=== PATIENT | female | born 1955 | race Caucasian/White ===

== ENCOUNTER 2018-02-20 17:35 | Emergency (ER) | payer MEDICARE, MEDICAID ==
[~2018-02-20] VITALS: Ht 175.3 cm; Wt 127.2 kg
[~2018-02-20 17:35] MED LIST: ASPI81TA52 PO; BUDE10.22 INH; BUSP10TA11 PO; DILT180C56 PO; DULO-31 PO; FURO-150 PO; LAMO100T65 PO; LISI40TA4 PO; MONT4TAB11 PO; OMEP40CA37 PO; PROP40TA72 PO; QUET25TA PO; ROPI1TAB2 PO; SYN0.088T PO; TRAZ-219 PO
[2018-02-20] MEDS ORDERED: ondansetron/PF 4mg/2ml inj IV ONE (17:45)
[2018-02-20 18:04] LABS: BASOPHILS # (AUTO) 0.1 X10'3 (0-0.2); BASOPHILS % (AUTO) 0.6 % (0-1); EOSINOPHILS # (AUTO) 0.3 X10'3 (0-0.9); EOSINOPHILS % (AUTO) 2.5 % (0-6); HEMATOCRIT 37.4 % (35.0-45.0); HEMOGLOBIN 12.4 g/dl (12.0-16.0); LYMPHOCYTES # (AUTO) 1.3 X10'3 (1.1-4.8); LYMPHOCYTES % (AUTO) 10.6 % (21-51); MEAN CORPUSCULAR HEMOGLOBIN 27.6 PG (27.0-31.0); MEAN CORPUSCULAR HGB CONC 33.2 % (33.0-36.5); MEAN CORPUSCULAR VOLUME 82.9 FL (78-98); MONOCYTES # (AUTO) 0.6 X10'3 (0-0.9); MONOCYTES % (AUTO) 4.7 % (2-12); NEUTROPHILS # (AUTO) 10.1 X10'3 (1.8-7.7); NEUTROPHILS % (AUTO) 81.6 % (42-75); PLATELET COUNT 373 X10'3 (140-440); RED CELL DISTRIBUTION WIDTH 15.4 % (11.5-14.5); WHITE BLOOD COUNT 12.3 X10'3 (4.5-11.0)
[2018-02-20 18:21] LABS: ALANINE AMINOTRANSFERASE 23 U/L (12-78); ALBUMIN 3.6 G/DL (3.4-5.0); ALBUMIN/GLOBULIN RATIO 0.8 (1.1-1.5); ALKALINE PHOSPHATASE 145 IU/L (46-116); ANION GAP 13 (8-16); ASPARTATE AMINO TRANSFERASE 13 U/L (10-37); BILIRUBIN,TOTAL 0.5 MG/DL (0.1-1.0); BLOOD UREA NITROGEN 17 MG/DL (7-18); BUN/CREATININE RATIO 17.3 (6.6-38.0); CALCIUM 8.9 MG/DL (8.5-10.1); CHLORIDE 101 MMOL/L (99-107); CREATININE 0.98 MG/DL (0.40-0.90); GLUCOSE 145 MG/DL (70-104); POTASSIUM 3.7 MMOL/L (3.5-5.1); SODIUM 138 MMOL/L (135-145); TOTAL CARBON DIOXIDE 23.7 MMOL/L (24-32); TOTAL PROTEIN 8.1 G/DL (6.4-8.2); eGFR 58 ML/MIN
[2018-02-20 18:28] LABS: PROTHROMBIN TIME 10.1 SECONDS (9.0-12.0)
[2018-02-20 18:29] LABS: LIPASE 127 U/L (73-393); MAGNESIUM 1.9 MG/DL (1.5-2.4); PARTIAL THROMBOPLASTIN TIME 26 SECONDS (22-32)
[2018-02-20] MEDS ORDERED: amLODIPine 5mg tablet PO ONE (19:00)
[2018-02-20 19:09] LABS: ETHANOL < 0.010 GM/DL (0.0-0.010)
[2018-02-20 20:21] LABS: CLARITY,URINE CLEAR (Clear); COLOR,URINE YELLOW (Yellow); GLUCOSE, URINE NEGATIVE (Neg); KETONES,URINE TRACE mg/dl (Neg); LEUKOCYTE ESTERASE ,URINE NEGATIVE (Neg); NITRITES, URINE NEGATIVE (Neg); OCCULT BLOOD,URINE SMALL (Neg); PH,URINE 7.5 (4.8-8.0); PROTEIN,URINE TRACE mg/dl (Neg); UA COLLECTION TYPE FOLEY CATH; UROBILINOGEN,URINE 0.2 E.U/dL (0.2-1.0)
[2018-02-20 20:23] LABS: URINE HCG NEGATIVE (NEG)
[2018-02-20 20:39] LABS: BACTERIA,URINE NONE SEEN /HPF (Neg); MUCUS STRANDS NONE SEEN /LPF (Neg); SQUAMOUS EPITHELIAL CELL,UR FEW /LPF (FEW); WBC,URINE NONE SEEN /HPF (0-4)
[2018-02-20 20:40] LABS: URINE AMPHETAMINE SCREEN NEGATIVE (Neg); URINE BARBITUATE SCREEN NEGATIVE (Neg); URINE BENZODIAZEPINES SCREEN NEGATIVE (Neg); URINE CANNABINOID SCREEN POSITIVE (Neg); URINE COCAINE SCREEN NEGATIVE (Neg); URINE METHADONE SCREEN NEGATIVE (Neg); URINE OPIATE SCREEN NEGATIVE (Neg); URINE PHENCYCLIDINE SCREEN NEGATIVE (Neg)
[2018-02-20] MEDS ORDERED: POLY17PO10 PO (21:20)
[2018-02-20] MEDS ORDERED: ONDA4TAB6 PO (21:20)
[2018-02-20 21:49] VITALS: BP 187/102
== END 2018-02-20 21:51 | disposition home or self-care (01) ==
LOC: ER 17:35
DX: R11.2 Nausea with vomiting, unspecified (principal); K59.00 Constipation, unspecified; R06.02 Shortness of breath; I10 Essential (primary) hypertension; R10.84 Generalized abdominal pain; Z90.49 Acquired absence of other specified parts of digestive tract; Z98.890 Other specified postprocedural states; Z88.5 Allergy status to narcotic agent; Z88.2 Allergy status to sulfonamides; Z91.048 Other nonmedicinal substance allergy status; Z79.899 Other long term (current) drug therapy; Z79.82 Long term (current) use of aspirin
CPT/HCPCS: 36415; 71045; 74176; 80053; 80305; 80320; 81001; 81025; 83690; 83735; 83880; 84484; 85025; 85610; 85730; 87502; 87503; 93005; 96374; 99284; J2405

== ENCOUNTER 2018-03-13 17:44 | Emergency (ER) | payer MEDICARE, MEDICAID ==
[~2018-03-13] VITALS: Ht 175.3 cm; Wt 121.8 kg
[~2018-03-13 17:44] MED LIST changes: +ONDA4TAB6 PO
[2018-03-13 18:39] LABS: BASOPHILS % (AUTO) 0.4 % (0-1); EOSINOPHILS # (AUTO) 0.3 X10'3 (0-0.9); EOSINOPHILS % (AUTO) 3.1 % (0-6); HEMATOCRIT 38.5 % (35.0-45.0); HEMOGLOBIN 12.3 g/dl (12.0-16.0); LYMPHOCYTES # (AUTO) 1.4 X10'3 (1.1-4.8); LYMPHOCYTES % (AUTO) 16.6 % (21-51); MEAN CORPUSCULAR VOLUME 84.6 FL (78-98); MEAN PLATELET VOLUME 7.7 FL (7.4-10.4); MONOCYTES # (AUTO) 0.6 X10'3 (0-0.9); MONOCYTES % (AUTO) 6.7 % (2-12); NEUTROPHILS # (AUTO) 6.3 X10'3 (1.8-7.7); NEUTROPHILS % (AUTO) 73.2 % (42-75); PLATELET COUNT 368 X10'3 (140-440); RED BLOOD COUNT 4.55 X10'6 (4.20-5.60); RED CELL DISTRIBUTION WIDTH 15.1 % (11.5-14.5); WHITE BLOOD COUNT 8.6 X10'3 (4.5-11.0)
--- NOTE | 2018-03-13 18:42 | NUR ---
ASSISTING RN WITH PT CARE, PT IS 62 YO FEMALE C/O CHEST PAIN "SHARP...LIKE A CRAMP... HEAVINESS" RADIATES THROUGH TO LEFT SCAPULA, +SOB, NO N/V, NO DIAPHORESIS, +LIGHTHEADEDNESS, PT HAS APPT WITH DR TIMMONS IN APR (HAD STENT PLACED IN SEPTEMBER), HAS APPT WITH PMD ON TO FOLLOW UP NODULES IN RRL LUNG FOUND IN JANUARY, PT IS [employer] 15, ALERT AND ORIENTED, FRIEND AT BEDSIDE, WAITING TO BE EVALUATED BY PROVIDER
[2018-03-13 18:49] LABS: ALANINE AMINOTRANSFERASE 23 U/L (12-78); ALBUMIN 3.4 G/DL (3.4-5.0); ALBUMIN/GLOBULIN RATIO 0.8 (1.1-1.5); ALKALINE PHOSPHATASE 150 IU/L (46-116); ANION GAP 12 (8-16); ASPARTATE AMINO TRANSFERASE 14 U/L (10-37); BILIRUBIN,TOTAL 0.4 MG/DL (0.1-1.0); BLOOD UREA NITROGEN 14 MG/DL (7-18); BUN/CREATININE RATIO 13.2 (6.6-38.0); CALCIUM 8.7 MG/DL (8.5-10.1); CHLORIDE 101 MMOL/L (99-107); CREATININE 1.06 MG/DL (0.40-0.90); GLUCOSE 108 MG/DL (70-104); POTASSIUM 3.9 MMOL/L (3.5-5.1); SODIUM 139 MMOL/L (135-145); TOTAL CARBON DIOXIDE 26.1 MMOL/L (24-32); TOTAL PROTEIN 7.7 G/DL (6.4-8.2); eGFR 53 ML/MIN
[2018-03-13 19:14] LABS: PARTIAL THROMBOPLASTIN TIME 27 SECONDS (22-32)
[2018-03-13] MEDS ORDERED: aspirin 81mg tab.chew PO ONE (19:15)
[2018-03-13] MEDS ORDERED: albuterol 2.5 MG/3 ML nebule NEB ONE (19:35)
[2018-03-13] MEDS ORDERED: ALBU6.7H INH (19:51)
[2018-03-13] MEDS ORDERED: PRED20TA PO (19:51)
[2018-03-13] MEDS ORDERED: dexamethasone 4mg tablet PO ONE (19:55)
[2018-03-13 20:05] VITALS: BP 146/90
== END 2018-03-13 20:09 | disposition home or self-care (01) ==
LOC: ER 17:44
DX: J20.9 Acute bronchitis, unspecified (principal); R07.89 Other chest pain; I10 Essential (primary) hypertension; Z90.49 Acquired absence of other specified parts of digestive tract; Z88.5 Allergy status to narcotic agent; Z88.2 Allergy status to sulfonamides; Z88.8 Allergy status to other drugs, medicaments and biological substances; Z79.82 Long term (current) use of aspirin; Z79.899 Other long term (current) drug therapy
CPT/HCPCS: 36415; 71045; 80053; 83735; 83880; 84484; 85025; 85610; 85730; 93005; 94640; 94760; 99284; J8540

== ENCOUNTER 2020-05-16 09:57 | Outpatient (CLI) | payer MEDICARE, MEDICAID ==
[~2020-05-16 09:57] MED LIST changes: +ALBU6.7H9 INH; +LISI40TA13 PO; -LISI40TA4 PO; -MONT4TAB11 PO; +MONT4TAB18 PO; +OMEP40CA13 PO; -OMEP40CA37 PO; -TRAZ-219 PO; +TRAZ-256 PO
== END 2020-05-16 23:59 | disposition home or self-care (01) ==
LOC: RT 09:57
PROVIDERS: ATTEND Family Medicine
DX: R94.2 Abnormal results of pulmonary function studies (principal); R06.02 Shortness of breath
CPT/HCPCS: 94010; 94729

== ENCOUNTER 2023-07-09 12:12 | Emergency (ER) | payer MEDICARE, MEDICAID ==
[~2023-07-09] VITALS: Ht 175.3 cm; Wt 144.6 kg
[~2023-07-09 12:12] MED LIST changes: -ALBU6.7H9 INH; +ATOR40TA72 PO; -BUDE10.22 INH; -BUSP10TA11 PO; -DILT180C56 PO; -FURO-150 PO; +FURO40TA4 PO; -LAMO100T65 PO; +METF-1203 PO; +MONT-40 PO; -MONT4TAB18 PO; +OMEP20CA16 PO; -OMEP40CA13 PO; -ONDA4TAB6 PO; +POTA-218 PO; -QUET25TA PO; -ROPI1TAB2 PO; +ROPI2TAB53 PO
[2023-07-09] MEDS ORDERED: DULO60CA65 PO (12:30)
[2023-07-09] MEDS ORDERED: QUET25TA36 PO (12:30)
[2023-07-09] MEDS ORDERED: LAMO200T10 PO (12:30)
[2023-07-09] MEDS ORDERED: APIX5TAB3 PO (12:30)
[2023-07-09] MEDS ORDERED: SOTA80TA PO (12:30)
[2023-07-09 13:32] LABS: BASOPHILS # (AUTO) 0.1 X10'3 (0-0.2); BASOPHILS % (AUTO) 0.6 % (0-1); EOSINOPHILS # (AUTO) 0.2 X10'3 (0-0.9); EOSINOPHILS % (AUTO) 1.8 % (0-6); HEMATOCRIT 35.8 % (35.0-45.0); HEMOGLOBIN 11.6 g/dl (12.0-16.0); LYMPHOCYTES # (AUTO) 1.7 X10'3 (1.1-4.8); LYMPHOCYTES % (AUTO) 14.6 % (21-51); MEAN CORPUSCULAR HEMOGLOBIN 29.2 PG (27.0-31.0); MEAN CORPUSCULAR HGB CONC 32.2 g/dL (33.0-36.5); MEAN CORPUSCULAR VOLUME 90.5 FL (78-98); MEAN PLATELET VOLUME 7.3 FL (7.4-10.4); MONOCYTES # (AUTO) 0.6 X10'3 (0-0.9); MONOCYTES % (AUTO) 4.8 % (2-12); NEUTROPHILS # (AUTO) 9.2 X10'3 (1.8-7.7); NEUTROPHILS % (AUTO) 78.2 % (42-75); PLATELET COUNT 319 X10'3 (140-440); RED BLOOD COUNT 3.96 X10'6 (4.20-5.60); RED CELL DISTRIBUTION WIDTH 14.1 % (11.5-14.5); WHITE BLOOD COUNT 11.7 X10'3 (4.5-11.0)
[2023-07-09 13:47] LABS: ALANINE AMINOTRANSFERASE 21 U/L (12-78); ALBUMIN 3.3 G/DL (3.4-5.0); ALBUMIN/GLOBULIN RATIO 0.8 (1.1-1.5); ALKALINE PHOSPHATASE 113 IU/L (46-116); ANION GAP 8 (8-16); ASPARTATE AMINO TRANSFERASE 8 U/L (10-37); BILIRUBIN,TOTAL 0.5 MG/DL (0.1-1.0); BLOOD UREA NITROGEN 14 MG/DL (7-18); CALCIUM 9.4 MG/DL (8.5-10.1); CHLORIDE 102 MMOL/L (99-107); CREATININE 1.17 MG/DL (0.40-0.90); GLUCOSE 138 MG/DL (70-104); LIPASE 35 U/L (16-77); POTASSIUM 4.4 MMOL/L (3.5-5.1); SODIUM 138 MMOL/L (135-145); TOTAL CARBON DIOXIDE 27.7 MMOL/L (24-32); TOTAL PROTEIN 7.6 G/DL (6.4-8.2); eCRCL 49 ML/MIN; eGFR 46 ML/MIN
[2023-07-09] MEDS: normal saline 1000ml 1,000 ML IV ONE (16:20)
[2023-07-09] MEDS ORDERED: iohexol 300mg/ml 100ml inj. ONE (16:26)
[2023-07-09 17:52] VITALS: BP 179/79; PULSE 78; RESP 18; TEMP 98.7; O2SAT 97
== END 2023-07-09 18:00 | disposition home or self-care (01) ==
LOC: ER 12:12
DX: N93.9 Abnormal uterine and vaginal bleeding, unspecified (principal); I10 Essential (primary) hypertension; F31.9 Bipolar disorder, unspecified; Z88.5 Allergy status to narcotic agent; Z88.2 Allergy status to sulfonamides; Z79.899 Other long term (current) drug therapy; Z79.2 Long term (current) use of antibiotics; Z90.49 Acquired absence of other specified parts of digestive tract
CPT/HCPCS: 36415; 74177; 76830; 76856; 80053; 83690; 85025; 96360; 99285; J3490; J7030; Q9967

== ENCOUNTER 2023-07-17 12:08 | Emergency (ER) | payer MEDICARE, MEDICAID ==
[~2023-07-17] VITALS: Ht 175.3 cm; Wt 148.6 kg
[~2023-07-17 12:08] MED LIST changes: +APIX5TAB3 PO; -ASPI81TA52 PO; -DULO-31 PO; +DULO60CA65 PO; +LAMO200T10 PO; -METF-1203 PO; -PROP40TA72 PO; +QUET25TA36 PO; +SOTA80TA PO
[2023-07-17 14:51] LABS: BASOPHILS # (AUTO) 0.1 X10'3 (0-0.2); BASOPHILS % (AUTO) 0.8 % (0-1); EOSINOPHILS # (AUTO) 0.2 X10'3 (0-0.9); EOSINOPHILS % (AUTO) 2.4 % (0-6); HEMATOCRIT 23.1 % (35.0-45.0); HEMOGLOBIN 7.5 g/dl (12.0-16.0); LYMPHOCYTES # (AUTO) 1.5 X10'3 (1.1-4.8); LYMPHOCYTES % (AUTO) 14.3 % (21-51); MEAN CORPUSCULAR HEMOGLOBIN 29.8 PG (27.0-31.0); MEAN CORPUSCULAR HGB CONC 32.3 g/dL (33.0-36.5); MEAN CORPUSCULAR VOLUME 92.3 FL (78-98); MEAN PLATELET VOLUME 7.2 FL (7.4-10.4); MONOCYTES # (AUTO) 0.6 X10'3 (0-0.9); MONOCYTES % (AUTO) 5.3 % (2-12); NEUTROPHILS # (AUTO) 8.2 X10'3 (1.8-7.7); NEUTROPHILS % (AUTO) 77.2 % (42-75); PLATELET COUNT 307 X10'3 (140-440); RED CELL DISTRIBUTION WIDTH 15.7 % (11.5-14.5); WHITE BLOOD COUNT 10.6 X10'3 (4.5-11.0)
[2023-07-17 15:07] LABS: APTT 24 SECONDS (22-32); PROTHROMBIN TIME 11.1 SECONDS (9.0-12.0)
[2023-07-17 15:09] LABS: ALANINE AMINOTRANSFERASE 18 U/L (12-78); ALBUMIN 3.1 G/DL (3.4-5.0); ALBUMIN/GLOBULIN RATIO 0.9 (1.1-1.5); ALKALINE PHOSPHATASE 97 IU/L (46-116); ANION GAP 3 (8-16); ASPARTATE AMINO TRANSFERASE 20 U/L (10-37); BILIRUBIN,TOTAL 0.5 MG/DL (0.1-1.0); BLOOD UREA NITROGEN 10 MG/DL (7-18); CALCIUM 8.5 MG/DL (8.5-10.1); CHLORIDE 103 MMOL/L (99-107); CREATININE 1.11 MG/DL (0.40-0.90); GLUCOSE 109 MG/DL (70-104); POTASSIUM 4.4 MMOL/L (3.5-5.1); SODIUM 137 MMOL/L (135-145); TOTAL CARBON DIOXIDE 30.7 MMOL/L (24-32); TOTAL PROTEIN 6.7 G/DL (6.4-8.2); eCRCL 51 ML/MIN; eGFR 49 ML/MIN
[2023-07-17 23:29] LABS: HEMATOCRIT 23.8 % (35.0-45.0); HEMOGLOBIN 7.6 g/dl (12.0-16.0); MEAN CORPUSCULAR HEMOGLOBIN 29.1 PG (27.0-31.0); MEAN CORPUSCULAR HGB CONC 31.8 g/dL (33.0-36.5); MEAN CORPUSCULAR VOLUME 91.5 FL (78-98); MEAN PLATELET VOLUME 7.2 FL (7.4-10.4); PLATELET COUNT 357 X10'3 (140-440); RED BLOOD COUNT 2.59 X10'6 (4.20-5.60); RED CELL DISTRIBUTION WIDTH 15.4 % (11.5-14.5); WHITE BLOOD COUNT 12.4 X10'3 (4.5-11.0)
[2023-07-18 00:31] LABS: PLATELET ESTIMATE NORMAL; TOTAL CELLS COUNTED 100
[2023-07-18 00:36] LABS: ELLIPTOCYTES FEW; HYPERSEGMENTED NEUTROPHILS FEW; HYPOCHROMASIA 1+; POIKILOCYTOSIS 3+; POLYCHROMASIA FEW
[2023-07-18 00:37] LABS: LARGE PLATELETS FEW
[2023-07-18] MEDS ORDERED: ALBU90AE INH (10:28)
[2023-07-18] MEDS ORDERED: SEMA0.258 SQ (10:28)
[2023-07-18] MEDS ORDERED: albuterol 2.5 MG/3 ML nebule NEB PRN (11:00)
[2023-07-18 12:14] LABS: BASOPHILS # (AUTO) 0.1 X10'3 (0-0.2); BASOPHILS % (AUTO) 0.8 % (0-1); EOSINOPHILS # (AUTO) 0.3 X10'3 (0-0.9); EOSINOPHILS % (AUTO) 2.4 % (0-6); HEMATOCRIT 23.4 % (35.0-45.0); HEMOGLOBIN 7.5 g/dl (12.0-16.0); LYMPHOCYTES # (AUTO) 1.8 X10'3 (1.1-4.8); LYMPHOCYTES % (AUTO) 16.4 % (21-51); MEAN CORPUSCULAR HEMOGLOBIN 29.5 PG (27.0-31.0); MEAN CORPUSCULAR VOLUME 92.1 FL (78-98); MONOCYTES # (AUTO) 0.6 X10'3 (0-0.9); MONOCYTES % (AUTO) 5.3 % (2-12); NEUTROPHILS # (AUTO) 8.4 X10'3 (1.8-7.7); NEUTROPHILS % (AUTO) 75.1 % (42-75); PLATELET COUNT 351 X10'3 (140-440); RED BLOOD COUNT 2.54 X10'6 (4.20-5.60); RED CELL DISTRIBUTION WIDTH 15.6 % (11.5-14.5); WHITE BLOOD COUNT 11.2 X10'3 (4.5-11.0)
[2023-07-18 13:04] VITALS: BP 167/85; PULSE 80; RESP 17; TEMP 98.2
[2023-07-18 13:15] LABS: UA COLLECTION TYPE CLN CATCH MIDSTREAM
[2023-07-18 13:16] LABS: CLARITY,URINE BLOODY (Clear); COLOR,URINE RED (Yellow)
[2023-07-18 13:23] LABS: BACTERIA,URINE FEW /HPF (Neg); MUCUS STRANDS MODERATE /LPF (Neg); RBC,URINE TNTC /HPF (0-2); SQUAMOUS EPITHELIAL CELL,UR MANY /LPF (FEW); WBC,URINE 0-4 /HPF (0-4)
[2023-07-18 13:27] VITALS: BP 178/96; PULSE 80; RESP 16; TEMP 98.6
[2023-07-18] MEDS: ROPINIRole 1mg tablet PO SCH (14:13)
[2023-07-18 14:15] VITALS: BP 166/120; PULSE 89; RESP 17; TEMP 98.4
[2023-07-18 14:53] VITALS: BP 164/110; PULSE 89; RESP 16; TEMP 98.6
[2023-07-18 15:38] VITALS: BP 195/109; PULSE 79; RESP 18; O2SAT 98
[2023-07-18] MEDS ORDERED: sotalol 80mg tablet PO SCH (20:00)
[2023-07-18] MEDS ORDERED: QUEtiapine 25mg tablet PO SCH (21:00)
[2023-07-18] MEDS ORDERED: traZODone 50mg tablet PO SCH (21:00)
[2023-07-18] MEDS ORDERED: montelukast 10mg tablet PO SCH (21:00)
[2023-07-19] MEDS ORDERED: levoTHYROXINE 88mcg tablet PO SCH (07:00)
[2023-07-19] MEDS ORDERED: lamoTRIgine 100mg tablet PO SCH (08:00)
[2023-07-19] MEDS ORDERED: atorvastatin 20mg tablet PO SCH (08:00)
[2023-07-19] MEDS ORDERED: furosemide 40mg tablet PO SCH (08:00)
[2023-07-19] MEDS ORDERED: pantoprazole 40mg Tablet.DR PO SCH (08:00)
[2023-07-19] MEDS ORDERED: lisinopril 20mg tablet PO SCH (08:00)
[2023-07-19] MEDS ORDERED: potassium chloride 10mEq ER tablet PO SCH (08:00)
[2023-07-19] MEDS ORDERED: duloxetine 30mg CAPSULE.DR PO SCH (08:00)
== END 2023-07-18 15:42 | disposition home or self-care (01) ==
LOC: ER 12:09
DX: N93.9 Abnormal uterine and vaginal bleeding, unspecified (principal); I95.1 Orthostatic hypotension; D50.0 Iron deficiency anemia secondary to blood loss (chronic); I11.0 Hypertensive heart disease with heart failure; I50.9 Heart failure, unspecified; E78.00 Pure hypercholesterolemia, unspecified; E03.9 Hypothyroidism, unspecified; Z88.5 Allergy status to narcotic agent; Z88.2 Allergy status to sulfonamides; Z91.09 Other allergy status, other than to drugs and biological substances; Z79.899 Other long term (current) drug therapy; Z90.49 Acquired absence of other specified parts of digestive tract
CPT/HCPCS: 36415; 36430; 71045; 80053; 81001; 85007; 85025; 85027; 85610; 85730; 86885; 86900; 86901; 86920; 93005; 99285; J7040; P9016

== ENCOUNTER 2023-07-19 12:25 | Emergency (ER) | payer MEDICARE, MEDICAID ==
[~2023-07-19] VITALS: Ht 175.3 cm; Wt 142.0 kg
[~2023-07-19 12:25] MED LIST changes: +ALBU90AE INH; +SEMA0.258 SQ
[2023-07-19 13:21] LABS: ALANINE AMINOTRANSFERASE 20 U/L (12-78); ALBUMIN/GLOBULIN RATIO 0.8 (1.1-1.5); ALKALINE PHOSPHATASE 95 IU/L (46-116); ANION GAP 7 (8-16); ASPARTATE AMINO TRANSFERASE 11 U/L (10-37); BILIRUBIN,TOTAL 0.6 MG/DL (0.1-1.0); BLOOD UREA NITROGEN 14 MG/DL (7-18); BUN/CREATININE RATIO 10.3 (10.0-20.0); CALCIUM 8.6 MG/DL (8.5-10.1); CHLORIDE 104 MMOL/L (99-107); CREATININE 1.36 MG/DL (0.40-0.90); GLUCOSE 117 MG/DL (70-104); POTASSIUM 4.2 MMOL/L (3.5-5.1); SODIUM 140 MMOL/L (135-145); TOTAL CARBON DIOXIDE 28.6 MMOL/L (24-32); TOTAL PROTEIN 6.6 G/DL (6.4-8.2); eCRCL 42 ML/MIN; eGFR 39 ML/MIN
[2023-07-19 13:22] LABS: BASOPHILS % (AUTO) 0.5 % (0-1); EOSINOPHILS # (AUTO) 0.2 X10'3 (0-0.9); EOSINOPHILS % (AUTO) 2.1 % (0-6); HEMATOCRIT 23.3 % (35.0-45.0); HEMOGLOBIN 7.5 g/dl (12.0-16.0); LYMPHOCYTES # (AUTO) 1.4 X10'3 (1.1-4.8); LYMPHOCYTES % (AUTO) 12.8 % (21-51); MEAN CORPUSCULAR HEMOGLOBIN 29.6 PG (27.0-31.0); MEAN CORPUSCULAR HGB CONC 32.3 g/dL (33.0-36.5); MEAN CORPUSCULAR VOLUME 91.7 FL (78-98); MONOCYTES # (AUTO) 0.6 X10'3 (0-0.9); NEUTROPHILS # (AUTO) 8.4 X10'3 (1.8-7.7); NEUTROPHILS % (AUTO) 78.6 % (42-75); PLATELET COUNT 320 X10'3 (140-440); RED BLOOD COUNT 2.55 X10'6 (4.20-5.60); RED CELL DISTRIBUTION WIDTH 15.9 % (11.5-14.5); WHITE BLOOD COUNT 10.7 X10'3 (4.5-11.0)
[2023-07-19 21:21] VITALS: BP 134/67; PULSE 74; RESP 18; TEMP 98.7
[2023-07-19 21:40] VITALS: BP 138/87; PULSE 74; RESP 18; TEMP 98.3
[2023-07-19 22:30] VITALS: BP 163/73; PULSE 77; RESP 14; TEMP 98.4
[2023-07-20 05:10] VITALS: BP 151/68; PULSE 73; RESP 16; TEMP 98.4; O2SAT 98
== END 2023-07-20 05:16 ==
LOC: ER 12:25
DX: D50.0 Iron deficiency anemia secondary to blood loss (chronic) (principal); N93.9 Abnormal uterine and vaginal bleeding, unspecified; R06.02 Shortness of breath; R53.1 Weakness; R42 Dizziness and giddiness; Z88.5 Allergy status to narcotic agent; Z88.2 Allergy status to sulfonamides; Z79.899 Other long term (current) drug therapy; I11.0 Hypertensive heart disease with heart failure; I50.9 Heart failure, unspecified; E78.00 Pure hypercholesterolemia, unspecified; E03.9 Hypothyroidism, unspecified; Z90.49 Acquired absence of other specified parts of digestive tract
CPT/HCPCS: 36415; 36430; 80053; 85025; 86885; 86900; 86901; 86920; 99285; J7040; P9016

== ENCOUNTER 2023-07-28 10:13 | Emergency (ER) | payer MEDICARE, MEDICAID ==
[~2023-07-28] VITALS: Ht 175.3 cm; Wt 145.4 kg
[2023-07-28 10:16] VITALS: TEMP 99
[2023-07-28 11:07] LABS: BASOPHILS % (AUTO) 0.6 % (0-1); EOSINOPHILS # (AUTO) 0.2 X10'3 (0-0.9); EOSINOPHILS % (AUTO) 3.2 % (0-6); HEMATOCRIT 29.5 % (35.0-45.0); HEMOGLOBIN 9.3 g/dl (12.0-16.0); LYMPHOCYTES # (AUTO) 0.6 X10'3 (1.1-4.8); LYMPHOCYTES % (AUTO) 10.7 % (21-51); MEAN CORPUSCULAR HEMOGLOBIN 28.8 PG (27.0-31.0); MEAN CORPUSCULAR HGB CONC 31.6 g/dL (33.0-36.5); MEAN CORPUSCULAR VOLUME 91.2 FL (78-98); MONOCYTES # (AUTO) 0.7 X10'3 (0-0.9); MONOCYTES % (AUTO) 13.6 % (2-12); NEUTROPHILS # (AUTO) 3.7 X10'3 (1.8-7.7); NEUTROPHILS % (AUTO) 71.9 % (42-75); PLATELET COUNT 205 X10'3 (140-440); RED BLOOD COUNT 3.23 X10'6 (4.20-5.60); RED CELL DISTRIBUTION WIDTH 17.5 % (11.5-14.5); WHITE BLOOD COUNT 5.2 X10'3 (4.5-11.0)
[2023-07-28 11:32] LABS: ALBUMIN 3.2 G/DL (3.4-5.0); ANION GAP 10 (8-16); BLOOD UREA NITROGEN 14 MG/DL (7-18); BUN/CREATININE RATIO 13.2 (10.0-20.0); CALCIUM 8.8 MG/DL (8.5-10.1); CHLORIDE 101 MMOL/L (99-107); CREATININE 1.06 MG/DL (0.40-0.90); GLUCOSE 143 MG/DL (70-104); POTASSIUM 4.4 MMOL/L (3.5-5.1); PRO BRAIN NATRIURETIC PEPTIDE 180 PG/ML (0-125); SODIUM 133 MMOL/L (135-145); TOTAL CARBON DIOXIDE 21.9 MMOL/L (24-32); eCRCL 54 ML/MIN; eGFR 52 ML/MIN
[2023-07-28] MEDS: predniSONE 20 mg tablet PO ONE (12:45)
[2023-07-28] MEDS: ipratropium 0.5 MG/2.5ML nebule IH ONE (12:46)
[2023-07-28] MEDS: albuterol 2.5 MG/3 ML nebule CONTNEB PRN ×2 (12:46→15:31)
[2023-07-28 12:51] VITALS: PULSE 86; RESP 22; O2SAT 97
[2023-07-28 13:29] VITALS: PULSE 80; RESP 22; O2SAT 96
[2023-07-28] MEDS: normal saline 1000ML IV soln IVB ONE (14:45)
[2023-07-28 15:31] VITALS: PULSE 81; RESP 21; O2SAT 96
[2023-07-28] MEDS ORDERED: AZIT250T3 PO (16:29)
[2023-07-28] MEDS ORDERED: PRED20TA PO (16:29)
[2023-07-28 17:54] VITALS: BP 154/71; PULSE 89; RESP 20; O2SAT 95
== END 2023-07-28 17:58 | disposition home or self-care (01) ==
LOC: ER 10:14
DX: J44.1 Chronic obstructive pulmonary disease with (acute) exacerbation (principal); D50.0 Iron deficiency anemia secondary to blood loss (chronic); Z88.2 Allergy status to sulfonamides; Z88.8 Allergy status to other drugs, medicaments and biological substances; I48.91 Unspecified atrial fibrillation; I25.10 Atherosclerotic heart disease of native coronary artery without angina pectoris; I11.0 Hypertensive heart disease with heart failure; I50.9 Heart failure, unspecified; E78.00 Pure hypercholesterolemia, unspecified; J45.909 Unspecified asthma, uncomplicated; E03.9 Hypothyroidism, unspecified; F32.A Depression, unspecified; Z90.49 Acquired absence of other specified parts of digestive tract; Z98.890 Other specified postprocedural states; Z79.52 Long term (current) use of systemic steroids; Z79.899 Other long term (current) drug therapy
CPT/HCPCS: 36415; 71046; 80048; 83605; 83880; 84484; 85025; 87040; 94644; 96360; 99285; A7015; J7030; J7512; Z7610; 94640; 94760; 99284